=== PATIENT | male | born 2000 | race Caucasian/White ===

== ENCOUNTER 2021-10-13 13:01 | Inpatient (IN) | payer OTHER ==
[~2021-10-13] VITALS: Ht 185.4 cm; Wt 81.6 kg
[2021-10-13] MEDS ORDERED: ACETAMINOPHEN 325 MG TABLET PO PRN ×2 (14:00→15:00)
[2021-10-13 14:30] VITALS: BP 138/78
[2021-10-13] MEDS: GABAPENTIN 300 MG CAPSULE PO SCH ×2 (16:28→20:27)
[2021-10-13] MEDS: ACETAMINOPHEN 325 MG TABLET PO SCH ×2 (16:29→23:09)
[2021-10-13] MEDS: SENNA 187 MG TABLET PO SCH (20:27)
[2021-10-13] MEDS: DOCUSATE SODIUM 100 MG CAPSULE PO SCH (20:27)
[2021-10-13] MEDS: APIXABAN 5 MG TABLET PO SCH (20:28)
[2021-10-13 20:37] VITALS: BP 115/68
[2021-10-13] MEDS ORDERED: CELECOXIB 200 MG CAPSULE PO SCH (21:00)
[2021-10-14 07:32] LABS: BASOPHILS % (AUTO) 0.8 % (0.0-2.0); EOSINOPHILS % (AUTO) 2.6 % (1.0-6.0); HEMATOCRIT 23.4 % (41-53); HEMOGLOBIN 7.9 g/dL (13.5-17.5); LYMPHOCYTES # (AUTO) 1.3 K/uL (1.0-4.8); LYMPHOCYTES % (AUTO) 13.4 % (22.0-44.0); MEAN CORPUSCULAR HEMOGLOBIN 28.4 pg (26.0-34.0); MEAN CORPUSCULAR HGB CONC 33.5 G/dL (31.0-37.0); MEAN CORPUSCULAR VOLUME 85 fL (80-100); MONOCYTES % (AUTO) 10.3 % (2.0-9.0); NEUTROPHILS # (AUTO) 6.8 K/uL (1.8-7.7); NEUTROPHILS % (AUTO) 72.9 % (40.0-70.0); PLATELET COUNT (AUTO) 687 K/uL (150-450); RED BLOOD CELL COUNT(AUTO) 2.77 MIL/uL (4.50-5.90); RED CELL DISTRIBUTION WIDTH 15.1 % (11.5-14.5)
[2021-10-14 07:40] VITALS: BP 121/70
[2021-10-14 07:58] LABS: ALANINE AMINOTRANSFERASE 70 U/L (12-78); ALBUMIN 2.8 g/dL (3.4-5.0); ALKALINE PHOSPHATASE 67 U/L (46-116); ANION GAP 7 mmol/L (8-16); ASPARTATE AMINOTRANSFERASE 41 U/L (15-37); BILIRUBIN,TOTAL 0.9 mg/dL (0.1-1.0); CARBON DIOXIDE 27 mmol/L (22-29); CHLORIDE 99 mmol/L (98-107); CREATININE 0.62 mg/dL (0.60-1.30); GLUCOSE,RANDOM 111 mg/dL (70-110); POTASSIUM 4.2 mmol/L (3.5-5.1); SODIUM SERUM 133 mmol/L (136-145); TOTAL PROTEIN, SERUM 6.8 g/dL (6.4-8.2); UREA NITROGEN, BLOOD 22 mg/dL (7-18)
[2021-10-14 08:00] LABS: GLOMERULAR FILTR. RATE CALC > 60 mL/min (>60)
[2021-10-14] MEDS: CELECOXIB 200 MG CAPSULE PO SCH ×2 (08:26→17:53)
[2021-10-14] MEDS: APIXABAN 5 MG TABLET PO SCH ×2 (08:27→21:07)
[2021-10-14] MEDS: DOCUSATE SODIUM 100 MG CAPSULE PO SCH ×2 (08:27→21:08)
[2021-10-14] MEDS: ACETAMINOPHEN 325 MG TABLET PO SCH ×3 (08:27→23:44)
[2021-10-14] MEDS: POLYETHYLENE GLYCOL 3350 17 GM PACKET PO SCH (08:27)
[2021-10-14] MEDS: GABAPENTIN 300 MG CAPSULE PO SCH ×3 (08:28→21:06)
[2021-10-14] MEDS: ETHYL ALCOHOL 62% ANTISEPTIC NASAL SANITIZER 0.6 ML AMPUL NASAL SCH ×2 (09:03→21:06)
[2021-10-14 09:32] VITALS: BP 121/70
[2021-10-14 20:28] VITALS: BP 134/70
[2021-10-14] MEDS: SENNA 187 MG TABLET PO SCH (21:06)
[2021-10-15] MEDS: CELECOXIB 200 MG CAPSULE PO SCH ×2 (07:50→15:57)
[2021-10-15] MEDS: GABAPENTIN 300 MG CAPSULE PO SCH ×3 (07:51→21:03)
[2021-10-15] MEDS: ETHYL ALCOHOL 62% ANTISEPTIC NASAL SANITIZER 0.6 ML AMPUL NASAL SCH ×2 (07:51→21:03)
[2021-10-15] MEDS: DOCUSATE SODIUM 100 MG CAPSULE PO SCH ×2 (07:51→21:03)
[2021-10-15] MEDS: ACETAMINOPHEN 325 MG TABLET PO SCH ×3 (07:51→23:28)
[2021-10-15] MEDS: POLYETHYLENE GLYCOL 3350 17 GM PACKET PO SCH (07:52)
[2021-10-15] MEDS: APIXABAN 5 MG TABLET PO SCH ×2 (07:52→21:03)
[2021-10-15 08:25] VITALS: BP 128/69
[2021-10-15 21:00] VITALS: BP 143/52
[2021-10-15] MEDS: SENNA 187 MG TABLET PO SCH (21:03)
[2021-10-15] MEDS: MELATONIN 5 MG TABLET PO PRN (23:28)
[2021-10-16] MEDS: POLYETHYLENE GLYCOL 3350 17 GM PACKET PO SCH (08:01)
[2021-10-16] MEDS: APIXABAN 5 MG TABLET PO SCH ×2 (08:02→20:45)
[2021-10-16] MEDS: DOCUSATE SODIUM 100 MG CAPSULE PO SCH ×2 (08:02→20:45)
[2021-10-16] MEDS: GABAPENTIN 300 MG CAPSULE PO SCH ×3 (08:02→20:45)
[2021-10-16] MEDS: CELECOXIB 200 MG CAPSULE PO SCH ×2 (08:02→16:48)
[2021-10-16] MEDS: ACETAMINOPHEN 325 MG TABLET PO SCH ×3 (08:02→23:19)
[2021-10-16 08:05] VITALS: BP 103/71
[2021-10-16] MEDS: ETHYL ALCOHOL 62% ANTISEPTIC NASAL SANITIZER 0.6 ML AMPUL NASAL SCH ×2 (08:27→20:45)
[2021-10-16] MEDS: SULFAMETHOX/TRIMETH DS 800-160 MG/TABLET PO SCH (10:03)
[2021-10-16 20:25] VITALS: BP 124/69
[2021-10-16] MEDS: SENNA 187 MG TABLET PO SCH (20:44)
[2021-10-16] MEDS: MELATONIN 5 MG TABLET PO PRN (20:45)
[2021-10-17 05:13] LABS: BASOPHILS % (AUTO) 1.1 % (0.0-2.0); HEMATOCRIT 25.4 % (41-53); HEMOGLOBIN 8.4 g/dL (13.5-17.5); LYMPHOCYTES # (AUTO) 1.6 K/uL (1.0-4.8); LYMPHOCYTES % (AUTO) 17.9 % (22.0-44.0); MEAN CORPUSCULAR HEMOGLOBIN 28.1 pg (26.0-34.0); MEAN CORPUSCULAR VOLUME 85 fL (80-100); MONOCYTES # (AUTO) 0.8 K/uL (0.1-1.0); MONOCYTES % (AUTO) 9.3 % (2.0-9.0); NEUTROPHILS # (AUTO) 6.1 K/uL (1.8-7.7); NEUTROPHILS % (AUTO) 68.7 % (40.0-70.0); RED BLOOD CELL COUNT(AUTO) 2.99 MIL/uL (4.50-5.90); RED CELL DISTRIBUTION WIDTH 15.8 % (11.5-14.5)
[2021-10-17 05:28] LABS: ANION GAP 11 mmol/L (8-16); CARBON DIOXIDE 26 mmol/L (22-29); CHLORIDE 100 mmol/L (98-107); GLUCOSE,RANDOM 114 mg/dL (70-110); POTASSIUM 4.4 mmol/L (3.5-5.1); SODIUM SERUM 137 mmol/L (136-145); UREA NITROGEN, BLOOD 21 mg/dL (7-18)
[2021-10-17 05:29] LABS: GLOMERULAR FILTR. RATE CALC > 60 mL/min (>60)
[2021-10-17 06:03] LABS: PLATELET COUNT (AUTO) 765 K/uL (150-450)
[2021-10-17 08:15] VITALS: BP 127/71
[2021-10-17] MEDS: DOCUSATE SODIUM 100 MG CAPSULE PO SCH ×2 (08:16→21:29)
[2021-10-17] MEDS: CELECOXIB 200 MG CAPSULE PO SCH ×2 (08:17→16:30)
[2021-10-17] MEDS: ETHYL ALCOHOL 62% ANTISEPTIC NASAL SANITIZER 0.6 ML AMPUL NASAL SCH ×2 (08:18→21:28)
[2021-10-17] MEDS: ACETAMINOPHEN 325 MG TABLET PO SCH ×3 (08:18→23:16)
[2021-10-17] MEDS: GABAPENTIN 300 MG CAPSULE PO SCH ×3 (08:18→21:29)
[2021-10-17] MEDS: SULFAMETHOX/TRIMETH DS 800-160 MG/TABLET PO SCH (08:18)
[2021-10-17] MEDS: POLYETHYLENE GLYCOL 3350 17 GM PACKET PO SCH (08:19)
[2021-10-17] MEDS: APIXABAN 5 MG TABLET PO SCH ×2 (08:19→21:29)
[2021-10-17 20:20] VITALS: BP 114/54
[2021-10-17] MEDS: SENNA 187 MG TABLET PO SCH (21:29)
[2021-10-17] MEDS: MELATONIN 5 MG TABLET PO PRN (23:16)
[2021-10-18] MEDS: ETHYL ALCOHOL 62% ANTISEPTIC NASAL SANITIZER 0.6 ML AMPUL NASAL SCH ×2 (07:12→21:06)
[2021-10-18] MEDS: CELECOXIB 200 MG CAPSULE PO SCH ×2 (07:13→15:46)
[2021-10-18] MEDS: DOCUSATE SODIUM 100 MG CAPSULE PO SCH ×2 (07:13→21:06)
[2021-10-18] MEDS: ACETAMINOPHEN 325 MG TABLET PO SCH ×3 (07:13→23:12)
[2021-10-18] MEDS: APIXABAN 5 MG TABLET PO SCH ×2 (07:13→21:06)
[2021-10-18] MEDS: POLYETHYLENE GLYCOL 3350 17 GM PACKET PO SCH (07:14)
[2021-10-18] MEDS: SULFAMETHOX/TRIMETH DS 800-160 MG/TABLET PO SCH (07:14)
[2021-10-18] MEDS: GABAPENTIN 300 MG CAPSULE PO SCH ×3 (07:14→21:06)
[2021-10-18 08:20] VITALS: BP 117/62
[2021-10-18 20:30] VITALS: BP 101/60
[2021-10-18] MEDS: SENNA 187 MG TABLET PO SCH (21:06)
[2021-10-18] MEDS: MELATONIN 5 MG TABLET PO PRN (23:13)
[2021-10-19] MEDS: ACETAMINOPHEN 325 MG TABLET PO SCH ×3 (07:11→21:17)
[2021-10-19] MEDS: ETHYL ALCOHOL 62% ANTISEPTIC NASAL SANITIZER 0.6 ML AMPUL NASAL SCH ×2 (07:11→21:16)
[2021-10-19] MEDS: POLYETHYLENE GLYCOL 3350 17 GM PACKET PO SCH (07:12)
[2021-10-19] MEDS: DOCUSATE SODIUM 100 MG CAPSULE PO SCH ×2 (07:12→21:16)
[2021-10-19] MEDS: APIXABAN 5 MG TABLET PO SCH ×2 (07:12→21:16)
[2021-10-19] MEDS: CELECOXIB 200 MG CAPSULE PO SCH ×2 (07:12→17:16)
[2021-10-19] MEDS: GABAPENTIN 300 MG CAPSULE PO SCH ×3 (07:12→21:20)
[2021-10-19] MEDS: SULFAMETHOX/TRIMETH DS 800-160 MG/TABLET PO SCH (07:12)
[2021-10-19 09:14] VITALS: BP 103/59
[2021-10-19 20:45] VITALS: BP 122/54
[2021-10-19] MEDS: SENNA 187 MG TABLET PO SCH (21:17)
[2021-10-19] MEDS: MELATONIN 5 MG TABLET PO PRN (21:18)
[2021-10-20 07:45] VITALS: BP 123/73
[2021-10-20] MEDS: ETHYL ALCOHOL 62% ANTISEPTIC NASAL SANITIZER 0.6 ML AMPUL NASAL SCH ×2 (09:01→23:11)
[2021-10-20] MEDS: ACETAMINOPHEN 325 MG TABLET PO SCH ×3 (09:01→23:08)
[2021-10-20] MEDS: CELECOXIB 200 MG CAPSULE PO SCH ×2 (09:01→17:07)
[2021-10-20] MEDS: POLYETHYLENE GLYCOL 3350 17 GM PACKET PO SCH (09:02)
[2021-10-20] MEDS: GABAPENTIN 300 MG CAPSULE PO SCH ×3 (09:02→23:11)
[2021-10-20] MEDS: APIXABAN 5 MG TABLET PO SCH ×2 (09:02→23:11)
[2021-10-20] MEDS: DOCUSATE SODIUM 100 MG CAPSULE PO SCH ×2 (09:02→23:11)
[2021-10-20] MEDS: SULFAMETHOX/TRIMETH DS 800-160 MG/TABLET PO SCH (09:02)
[2021-10-20 19:40] VITALS: BP 106/60
[2021-10-20] MEDS: MELATONIN 5 MG TABLET PO PRN (23:07)
[2021-10-20] MEDS: SENNA 187 MG TABLET PO SCH (23:12)
[2021-10-21] MEDS: POLYETHYLENE GLYCOL 3350 17 GM PACKET PO SCH (07:22)
[2021-10-21] MEDS: DOCUSATE SODIUM 100 MG CAPSULE PO SCH ×2 (07:23→21:00)
[2021-10-21] MEDS: APIXABAN 5 MG TABLET PO SCH ×2 (07:23→21:24)
[2021-10-21] MEDS: ETHYL ALCOHOL 62% ANTISEPTIC NASAL SANITIZER 0.6 ML AMPUL NASAL SCH ×2 (07:23→21:24)
[2021-10-21] MEDS: ACETAMINOPHEN 325 MG TABLET PO SCH ×3 (07:23→23:09)
[2021-10-21] MEDS: GABAPENTIN 300 MG CAPSULE PO SCH ×3 (07:23→21:24)
[2021-10-21] MEDS: SULFAMETHOX/TRIMETH DS 800-160 MG/TABLET PO SCH (07:23)
[2021-10-21] MEDS: MULTIVITAMINS WITH MINERALS, THERAPEUTIC TABLET PO SCH (07:23)
[2021-10-21] MEDS: CELECOXIB 200 MG CAPSULE PO SCH ×2 (07:24→16:40)
[2021-10-21 08:49] VITALS: BP 122/62
[2021-10-21 20:00] VITALS: BP 114/63
[2021-10-21] MEDS: SENNA 187 MG TABLET PO SCH (21:00)
[2021-10-21] MEDS: MELATONIN 5 MG TABLET PO PRN (23:10)
[2021-10-22 07:02] LABS: BASOPHILS % (AUTO) 1.7 % (0.0-2.0); EOSINOPHILS % (AUTO) 5.6 % (1.0-6.0); HEMATOCRIT 30.9 % (41-53); HEMOGLOBIN 10.1 g/dL (13.5-17.5); LYMPHOCYTES # (AUTO) 1.2 K/uL (1.0-4.8); LYMPHOCYTES % (AUTO) 20.2 % (22.0-44.0); MEAN CORPUSCULAR HEMOGLOBIN 27.7 pg (26.0-34.0); MEAN CORPUSCULAR HGB CONC 32.6 G/dL (31.0-37.0); MEAN CORPUSCULAR VOLUME 85 fL (80-100); MONOCYTES # (AUTO) 0.8 K/uL (0.1-1.0); MONOCYTES % (AUTO) 12.7 % (2.0-9.0); NEUTROPHILS # (AUTO) 3.6 K/uL (1.8-7.7); NEUTROPHILS % (AUTO) 59.8 % (40.0-70.0); PLATELET COUNT (AUTO) 606 K/uL (150-450); RED BLOOD CELL COUNT(AUTO) 3.63 MIL/uL (4.50-5.90); RED CELL DISTRIBUTION WIDTH 16.3 % (11.5-14.5)
[2021-10-22 07:09] LABS: ANION GAP 5 mmol/L (8-16); CALCIUM, TOTAL 9.2 mg/dL (8.8-10.5); CARBON DIOXIDE 31 mmol/L (22-29); CHLORIDE 101 mmol/L (98-107); CREATININE 0.71 mg/dL (0.60-1.30); GLOMERULAR FILTR. RATE CALC > 60 mL/min (>60); GLUCOSE,RANDOM 101 mg/dL (70-110); POTASSIUM 4.2 mmol/L (3.5-5.1); SODIUM SERUM 137 mmol/L (136-145); UREA NITROGEN, BLOOD 22 mg/dL (7-18)
[2021-10-22 07:45] VITALS: BP 110/58
[2021-10-22] MEDS: SULFAMETHOX/TRIMETH DS 800-160 MG/TABLET PO SCH (08:14)
[2021-10-22] MEDS: ACETAMINOPHEN 325 MG TABLET PO SCH ×3 (08:14→23:03)
[2021-10-22] MEDS: CELECOXIB 200 MG CAPSULE PO SCH ×2 (08:14→16:22)
[2021-10-22] MEDS: DOCUSATE SODIUM 100 MG CAPSULE PO SCH ×2 (08:14→20:40)
[2021-10-22] MEDS: ETHYL ALCOHOL 62% ANTISEPTIC NASAL SANITIZER 0.6 ML AMPUL NASAL SCH ×2 (08:14→20:39)
[2021-10-22] MEDS: POLYETHYLENE GLYCOL 3350 17 GM PACKET PO SCH (08:15)
[2021-10-22] MEDS: APIXABAN 5 MG TABLET PO SCH ×2 (08:15→20:40)
[2021-10-22] MEDS: GABAPENTIN 300 MG CAPSULE PO SCH ×3 (08:15→20:40)
[2021-10-22] MEDS: MULTIVITAMINS WITH MINERALS, THERAPEUTIC TABLET PO SCH (08:15)
[2021-10-22 20:02] VITALS: BP 116/60
[2021-10-22] MEDS: SENNA 187 MG TABLET PO SCH (20:39)
[2021-10-22] MEDS: MELATONIN 5 MG TABLET PO PRN (23:03)
[2021-10-23 08:05] VITALS: BP 121/65
[2021-10-23] MEDS: POLYETHYLENE GLYCOL 3350 17 GM PACKET PO SCH (09:00)
[2021-10-23] MEDS: CELECOXIB 200 MG CAPSULE PO SCH ×2 (09:02→17:39)
[2021-10-23] MEDS: SULFAMETHOX/TRIMETH DS 800-160 MG/TABLET PO SCH (09:02)
[2021-10-23] MEDS: DOCUSATE SODIUM 100 MG CAPSULE PO SCH ×2 (09:03→20:53)
[2021-10-23] MEDS: MULTIVITAMINS WITH MINERALS, THERAPEUTIC TABLET PO SCH (09:03)
[2021-10-23] MEDS: ETHYL ALCOHOL 62% ANTISEPTIC NASAL SANITIZER 0.6 ML AMPUL NASAL SCH ×2 (09:03→20:54)
[2021-10-23] MEDS: ACETAMINOPHEN 325 MG TABLET PO SCH ×3 (09:03→23:24)
[2021-10-23] MEDS: GABAPENTIN 300 MG CAPSULE PO SCH ×3 (09:03→20:54)
[2021-10-23] MEDS: APIXABAN 5 MG TABLET PO SCH ×2 (09:03→20:53)
[2021-10-23] MEDS ORDERED: POLYETHYLENE GLYCOL 3350 17 GM PACKET PO PRN (12:00)
[2021-10-23 20:12] VITALS: BP 116/67
[2021-10-23] MEDS: SENNA 187 MG TABLET PO SCH (20:54)
[2021-10-24] MEDS ORDERED: APIX5TAB PO (01:33)
[2021-10-24] MEDS ORDERED: DOCU-385 PO (01:33)
[2021-10-24] MEDS ORDERED: GABA-1181 PO (01:33)
[2021-10-24] MEDS ORDERED: CELE200 PO (01:33)
[2021-10-24] MEDS ORDERED: ACET-2247 PO (01:33)
[2021-10-24 08:00] VITALS: BP 112/62
[2021-10-24] MEDS: MULTIVITAMINS WITH MINERALS, THERAPEUTIC TABLET PO SCH (08:48)
[2021-10-24] MEDS: DOCUSATE SODIUM 100 MG CAPSULE PO SCH ×2 (08:48→20:35)
[2021-10-24] MEDS: ACETAMINOPHEN 325 MG TABLET PO SCH ×3 (08:48→23:07)
[2021-10-24] MEDS: CELECOXIB 200 MG CAPSULE PO SCH ×2 (08:49→16:04)
[2021-10-24] MEDS: GABAPENTIN 300 MG CAPSULE PO SCH ×3 (08:49→20:35)
[2021-10-24] MEDS: APIXABAN 5 MG TABLET PO SCH ×2 (08:49→20:35)
[2021-10-24] MEDS: ETHYL ALCOHOL 62% ANTISEPTIC NASAL SANITIZER 0.6 ML AMPUL NASAL SCH ×2 (08:49→20:35)
[2021-10-24 20:20] VITALS: BP_SYST 117; BP_SYST 126; BP_DIAS 56; BP_DIAS 68
[2021-10-24] MEDS: SENNA 187 MG TABLET PO SCH (20:35)
[2021-10-24] MEDS: MELATONIN 5 MG TABLET PO PRN (23:07)
[2021-10-25 07:30] VITALS: BP 115/64
[2021-10-25] MEDS: DOCUSATE SODIUM 100 MG CAPSULE PO SCH (09:00)
[2021-10-25] MEDS: ACETAMINOPHEN 325 MG TABLET PO SCH ×3 (09:10→23:07)
[2021-10-25] MEDS: ETHYL ALCOHOL 62% ANTISEPTIC NASAL SANITIZER 0.6 ML AMPUL NASAL SCH ×2 (09:10→20:32)
[2021-10-25] MEDS: CELECOXIB 200 MG CAPSULE PO SCH ×2 (09:10→16:24)
[2021-10-25] MEDS: MULTIVITAMINS WITH MINERALS, THERAPEUTIC TABLET PO SCH (09:11)
[2021-10-25] MEDS: APIXABAN 5 MG TABLET PO SCH ×2 (09:11→20:32)
[2021-10-25] MEDS: GABAPENTIN 300 MG CAPSULE PO SCH ×3 (09:11→20:33)
[2021-10-25] MEDS ORDERED: DOCUSATE SODIUM 100 MG CAPSULE PO PRN (11:00)
[2021-10-25] MEDS: MELATONIN 5 MG TABLET PO PRN (23:06)
[2021-10-26 01:28] VITALS: BP 112/63
[2021-10-26] MEDS: ETHYL ALCOHOL 62% ANTISEPTIC NASAL SANITIZER 0.6 ML AMPUL NASAL SCH ×2 (07:27→21:16)
[2021-10-26] MEDS: GABAPENTIN 300 MG CAPSULE PO SCH ×3 (07:28→21:17)
[2021-10-26] MEDS: CELECOXIB 200 MG CAPSULE PO SCH ×2 (07:28→17:29)
[2021-10-26] MEDS: ACETAMINOPHEN 325 MG TABLET PO SCH ×2 (07:28→17:30)
[2021-10-26] MEDS: MULTIVITAMINS WITH MINERALS, THERAPEUTIC TABLET PO SCH (07:28)
[2021-10-26] MEDS: APIXABAN 5 MG TABLET PO SCH ×2 (07:28→21:17)
[2021-10-26 08:30] VITALS: BP 105/67
[2021-10-26] MEDS ORDERED: CELE200 PO (09:00)
[2021-10-26] MEDS ORDERED: ACET325T51 PO (09:00)
[2021-10-26] MEDS ORDERED: MULT-1239 PO (09:00)
[2021-10-26] MEDS ORDERED: GABA-1181 PO (09:00)
[2021-10-26] MEDS ORDERED: APIX5TAB PO (09:00)
[2021-10-26 20:30] VITALS: BP 121/70
[2021-10-27] MEDS: MELATONIN 5 MG TABLET PO PRN ×2 (00:02→23:23)
[2021-10-27] MEDS: ACETAMINOPHEN 325 MG TABLET PO SCH ×4 (00:02→23:24)
[2021-10-27] MEDS: MULTIVITAMINS WITH MINERALS, THERAPEUTIC TABLET PO SCH (08:47)
[2021-10-27] MEDS: GABAPENTIN 300 MG CAPSULE PO SCH ×3 (08:47→20:48)
[2021-10-27] MEDS: APIXABAN 5 MG TABLET PO SCH ×2 (08:47→20:48)
[2021-10-27] MEDS: CELECOXIB 200 MG CAPSULE PO SCH ×2 (08:49→17:44)
[2021-10-27] MEDS: ETHYL ALCOHOL 62% ANTISEPTIC NASAL SANITIZER 0.6 ML AMPUL NASAL SCH ×2 (08:49→20:48)
[2021-10-27 09:00] VITALS: BP 120/72
[2021-10-27 20:30] VITALS: BP 125/71
[2021-10-28 08:05] VITALS: BP 117/66
[2021-10-28] MEDS: APIXABAN 5 MG TABLET PO SCH ×2 (08:17→21:01)
[2021-10-28] MEDS: ACETAMINOPHEN 325 MG TABLET PO SCH ×3 (08:17→21:01)
[2021-10-28] MEDS: MULTIVITAMINS WITH MINERALS, THERAPEUTIC TABLET PO SCH (08:19)
[2021-10-28] MEDS: GABAPENTIN 300 MG CAPSULE PO SCH ×3 (08:19→21:01)
[2021-10-28] MEDS: ETHYL ALCOHOL 62% ANTISEPTIC NASAL SANITIZER 0.6 ML AMPUL NASAL SCH ×2 (08:19→21:00)
[2021-10-28] MEDS: CELECOXIB 200 MG CAPSULE PO SCH ×2 (08:20→16:28)
[2021-10-28] MEDS: MELATONIN 5 MG TABLET PO PRN (21:00)
[2021-10-28 21:31] VITALS: BP 122/64
[2021-10-29 08:15] VITALS: BP 120/69
[2021-10-29] MEDS: APIXABAN 5 MG TABLET PO SCH ×2 (09:17→20:35)
[2021-10-29] MEDS: ETHYL ALCOHOL 62% ANTISEPTIC NASAL SANITIZER 0.6 ML AMPUL NASAL SCH ×2 (09:17→20:34)
[2021-10-29] MEDS: CELECOXIB 200 MG CAPSULE PO SCH ×2 (09:18→17:45)
[2021-10-29] MEDS: GABAPENTIN 300 MG CAPSULE PO SCH ×3 (09:18→20:35)
[2021-10-29] MEDS: ACETAMINOPHEN 325 MG TABLET PO SCH ×3 (09:19→20:35)
[2021-10-29] MEDS: MULTIVITAMINS WITH MINERALS, THERAPEUTIC TABLET PO SCH (09:28)
[2021-10-29] MEDS: MELATONIN 5 MG TABLET PO PRN (20:35)
[2021-10-29 21:30] VITALS: BP 117/66
[2021-10-30 07:40] VITALS: BP 108/56
[2021-10-30] MEDS: CELECOXIB 200 MG CAPSULE PO SCH (08:28)
[2021-10-30] MEDS: GABAPENTIN 300 MG CAPSULE PO SCH (08:29)
[2021-10-30] MEDS: ACETAMINOPHEN 325 MG TABLET PO SCH (08:29)
[2021-10-30] MEDS: MULTIVITAMINS WITH MINERALS, THERAPEUTIC TABLET PO SCH (08:29)
[2021-10-30] MEDS: APIXABAN 5 MG TABLET PO SCH (08:29)
[2021-10-30] MEDS: ETHYL ALCOHOL 62% ANTISEPTIC NASAL SANITIZER 0.6 ML AMPUL NASAL SCH (08:29)
== END 2021-10-30 15:03 | disposition home or self-care (01) | DRG 963 ==
LOC: 2WR 14:26
PROVIDERS: ADMIT Physical Medicine & Rehabilitation; ATTEND Physical Medicine & Rehabilitation
DX: S32.89XB Fracture of other parts of pelvis, initial encounter for open fracture (principal); I26.99 Other pulmonary embolism without acute cor pulmonale; S32.492A Other specified fracture of left acetabulum, initial encounter for closed fracture; S32.10XA Unspecified fracture of sacrum, initial encounter for closed fracture; S42.491A Other displaced fracture of lower end of right humerus, initial encounter for closed fracture; S52.91XA Unspecified fracture of right forearm, initial encounter for closed fracture; S82.292A Other fracture of shaft of left tibia, initial encounter for closed fracture; E87.1 Hypo-osmolality and hyponatremia; E46 Unspecified protein-calorie malnutrition; S36.892A Contusion of other intra-abdominal organs, initial encounter; S36.029A Unspecified contusion of spleen, initial encounter; D64.9 Anemia, unspecified; S92.812A Other fracture of left foot, initial encounter for closed fracture; S82.492A Other fracture of shaft of left fibula, initial encounter for closed fracture; D75.839 Thrombocytosis, unspecified; Z79.01 Long term (current) use of anticoagulants; Z79.899 Other long term (current) drug therapy; V89.2XXA Person injured in unspecified motor-vehicle accident, traffic, initial encounter; Y93.89 Activity, other specified; Y92.488 Other paved roadways as the place of occurrence of the external cause; Y99.8 Other external cause status; Z68.23 Body mass index [BMI] 23.0-23.9, adult
CPT/HCPCS: 80048; 80053; 85025; 87081; 92523; 97110; 97140; 97150; 97162; 97167; 97530; 97535; 99366; Q9967